=== PATIENT | female | born 1965 | race African-American/Black ===

== ENCOUNTER 2018-09-23 09:50 | Inpatient (IN) | payer OTHER ==
[~2018-09-23] VITALS: Ht 167.6 cm; Wt 72.6 kg
[~2018-09-23 09:50] MED LIST: AMLODIPINE BESY10 MG PO; ASA81 MG; FOLIC ACID1 MG; ORPHENADRINE C100 MG PO
--- NOTE | 2018-09-23 10:03 | NUR ---
SE RECIBE PTE ALERTA Y ORIENTADA X3,REFIERE DOLOR DE PECHO,REFIERE FAMILIAR LA PTE SE COMENZO A QUEJAR DE DOLOR HACE 2V HORAS.
[2018-09-23] MEDS ORDERED: LIPITOR20 MG (10:12)
[2018-09-23] MEDS ORDERED: LEVO-T50 MCG (10:13)
[2018-09-23] MEDS ORDERED: ESTRACE1 MG (10:14)
[2018-09-23] MEDS ORDERED: NEURIN (10:14)
--- NOTE | 2018-09-23 10:32 | NUR ---
EVALUADA POR EL SE ORIENTA SOBRE TRATAMIENTO MEDICO Y KA UNIDAD CONECTADA A MONITOR CARDIACO, ALERTA, ORIENTADA POR KATERINE. ACOMPANA[place] POR FAMILIAR. SE LE EXTRAEN MUESTRAS DE LESLIE Y SE ENVIAN AL LABORATORIO. SE MANTIENE EN OBSERVACION.
--- NOTE | 2018-09-23 14:30 | NUR ---
SE LE EXTRAE MUESTRA DE LESLIE TROPONINA Y SE ENVIAN AL LABORATORIO Y PENDIENTE A CONSULTA CON . SE MANTIENE EN OBSERVACION.
[2018-09-26] MEDS ORDERED: BENZONATATE100 MG PO (10:08)
[2018-09-26] MEDS ORDERED: METOPROLOL TART50 MG PO (10:08)
[2018-09-26] MEDS ORDERED: LEVOFLOXACIN500 MG PO (10:08)
[2018-09-26] MEDS ORDERED: MEDROLPACK PO (10:08)
== END 2018-09-26 12:11 | disposition home or self-care (01) | DRG 310 ==
LOC: ER 09:50 → SEC-K 18:58 → MEDJ 18:58
PROVIDERS: ADMIT Internal Medicine
PROC: 4A033R1 Measurement of Arterial Saturation, Peripheral, Percutaneous Approach (ICD-10-PCS; principal; 2018-09-23)
PROC: 3E0F7GC Introduction of Other Therapeutic Substance into Respiratory Tract, Via Natural or Artificial Opening (ICD-10-PCS; 2018-09-23)
PROC: B246ZZZ Ultrasonography of Right and Left Heart (ICD-10-PCS; 2018-09-23)
PROC: BB24ZZZ Computerized Tomography (CT Scan) of Bilateral Lungs (ICD-10-PCS; 2018-09-23)
PROC: 4A12X4Z Monitoring of Cardiac Electrical Activity, External Approach (ICD-10-PCS; 2018-09-24)
PROC: 4A02XM4 Measurement of Cardiac Total Activity, External Approach (ICD-10-PCS; 2018-09-24)
PROC: 3E073KZ Introduction of Other Diagnostic Substance into Coronary Artery, Percutaneous Approach (ICD-10-PCS; 2018-09-24)
DX: I47.1 Supraventricular tachycardia (principal); E03.8 Other specified hypothyroidism; E78.49 Other hyperlipidemia; J45.909 Unspecified asthma, uncomplicated; B96.0 Mycoplasma pneumoniae [M. pneumoniae] as the cause of diseases classified elsewhere